=== PATIENT | female | born 1990 | race Caucasian/White ===

== ENCOUNTER 2017-10-14 12:29 | Emergency (ER) | payer MEDICAID ==
[~2017-10-14] VITALS: Ht 167.6 cm; Wt 56.7 kg
[2017-10-14 13:53] LABS: HEMATOCRIT 37.5 % (34.6-47.8); HEMOGLOBIN 12.9 g/dL (11.7-16.4); WHITE BLOOD COUNT 6.6 x10^3/uL (3.4-10)
[2017-10-14] MEDS ORDERED: SODIUM CHLORIDE FLUSH 10ML SYR IVF ONE (14:00)
[2017-10-14] MEDS ORDERED: SODIUM CHLORIDE 0.9% 1,000ML IVBOLUS ONE (14:00)
[2017-10-14] MEDS ORDERED: PLEASE ENTER ALLERGIES MC SCH ×2 (14:00)
[2017-10-14] MEDS ORDERED: ONDANSETRON 2MG/ML, 2ML IVPush ONE (14:00)
[2017-10-14] MEDS ORDERED: MORPHINE SULFATE 4 MG/ML, 1ML IVPush PRN (14:00)
[2017-10-14 14:02] LABS: BLOOD UREA NITROGEN 7 mg/dL (7-18)
[2017-10-14 16:13] VITALS: BP 109/68
== END 2017-10-14 16:16 | disposition home or self-care (01) ==
LOC: MERGE 12:29 → ED 15:36
DX: R10.2 Pelvic and perineal pain (principal)
CPT/HCPCS: 36415; 76801; 80048; 81003; 82040; 84702; 85025; 86901; 96361; 96374; 96375; 99285; J2405; J7030; 86900

== ENCOUNTER 2018-01-18 10:21 | Emergency (ER) | payer MEDICAID ==
[~2018-01-18] VITALS: Ht 167.6 cm; Wt 60.0 kg
[2018-01-18 11:46] LABS: BASOPHILS # (AUTO) 0.03 x10^3/uL (0-0.1); BASOPHILS % (AUTO) 0 % (0-1); EOSINOPHILS # (AUTO) 0.02 x10^3/uL (0-0.4); EOSINOPHILS % (AUTO) 0 % (1-7); LYMPHOCYTES % (AUTO) 19 % (22-44); MD NO; MEAN CORPUSCULAR HEMOGLOBIN 34.4 pg (27.0-34.8); MEAN CORPUSCULAR HGB CONC 34.9 g/dL (32.4-35.8); MEAN CORPUSCULAR VOLUME 98.3 fL (80-100); MEAN PLATELET VOLUME 8.5 fL (7.4-10.4); MONOCYTES # (AUTO) 0.39 x10^3/uL (0.2-0.8); MONOCYTES % (AUTO) 5 % (2-9); NEUTROPHILS # (AUTO) 5.64 x10^3/uL (1.8-6.8); NEUTROPHILS % (AUTO) 75 % (42-75); PLATELET COUNT 262 x10^3/uL (130-400); RED BLOOD COUNT 3.26 x10^6/uL (3.82-5.3)
[2018-01-18 11:58] LABS: ALANINE AMINOTRANSFERASE 7 U/L (12-78); ALBUMIN 3.1 g/dL (3.4-5.0); ANION GAP 9 mmol/L (5-15); CALCIUM 8.3 mg/dL (8.5-10.1); CHLORIDE 107 mmol/L (98-107); CREATININE 0.31 mg/dL (0.55-1.02)
[2018-01-18 12:00] LABS: ALKALINE PHOSPHATASE 44 U/L (45-117); BILIRUBIN,TOTAL 0.2 mg/dL (0.2-1.0); TOTAL PROTEIN 6.9 g/dL (6.4-8.2)
[2018-01-18 12:01] LABS: MICROSCOPIC NOT IND
[2018-01-18 12:09] LABS: CULTURE INDICATED? NO
[2018-01-18 12:58] VITALS: BP 107/67
== END 2018-01-18 12:59 | disposition home or self-care (01) ==
LOC: ED 12:45
DX: O26.892 Other specified pregnancy related conditions, second trimester (principal); R10.84 Generalized abdominal pain; Z3A.18 18 weeks gestation of pregnancy
CPT/HCPCS: 36415; 76815; 80053; 81003; 83690; 85025; 99285

== ENCOUNTER 2018-03-29 16:56 | Outpatient (CLI) | payer MEDICAID ==
[~2018-03-29] VITALS: Ht 167.6 cm; Wt 67.3 kg
[2018-03-29 17:08] VITALS: BP 115/75
[2018-03-29] MEDS ORDERED: PREN1TAB60 PO (17:30)
[2018-03-29] MEDS ORDERED: ACETAMINOPHEN 325 MG TABLET ONE (17:52)
[2018-03-29] MEDS ORDERED: ACETAMINOPHEN 325 MG TABLET PO PRN (18:00)
== END 2018-03-29 19:15 | disposition home or self-care (01) ==
LOC: LDOP 16:56
PROVIDERS: ATTEND Obstetrics & Gynecology
DX: O36.8130 Decreased fetal movements, third trimester, not applicable or unspecified (principal); Z3A.28 28 weeks gestation of pregnancy
CPT/HCPCS: 59025; 76815; 99201; G0463

== ENCOUNTER 2018-04-11 14:25 | Observation (INO) | payer MEDICAID ==
[~2018-04-11] VITALS: Ht 167.6 cm; Wt 65.0 kg
[~2018-04-11 14:25] MED LIST: PREN1TAB60 PO
[2018-04-11] MEDS ORDERED: PLEASE ENTER HEIGHT AND WEIGHT MC SCH (15:30)
[2018-04-11] MEDS ORDERED: LACTATED RINGERS 1,000 ML IVBOLUS ONE (15:30)
[2018-04-11] MEDS ORDERED: HYDROXYZINE PAMOATE 50MG CAP PO ONE (15:30)
[2018-04-11 16:13] LABS: MICROSCOPIC NOT IND
[2018-04-11 16:16] VITALS: BP 125/69
[2018-04-11 17:48] LABS: AMPHETAMINE SCREEN, URINE Negative (Negative); BARBITURATE SCREEN, URINE Negative (Negative); BENZODIAZEPINE SCREEN, URINE Negative (Negative); CANNABINOID SCREEN, URINE Negative (Negative); COCAINE SCREEN, URINE Negative (Negative); METHADONE SCREEN, URINE Negative (Negative); OPIATE SCREEN, URINE Negative (Negative)
[2018-04-11 18:28] LABS: BASOPHILS # (AUTO) 0.06 x10^3/uL (0-0.1); BASOPHILS % (AUTO) 1 % (0-1); EOSINOPHILS # (AUTO) 0.01 x10^3/uL (0-0.4); EOSINOPHILS % (AUTO) 0 % (1-7); LYMPHOCYTES # (AUTO) 1.77 x10^3/uL (1-3.4); LYMPHOCYTES % (AUTO) 21 % (22-44); MD NO; MEAN CORPUSCULAR HEMOGLOBIN 34.7 pg (27.0-34.8); MEAN CORPUSCULAR HGB CONC 34.8 g/dL (32.4-35.8); MEAN CORPUSCULAR VOLUME 99.8 fL (80-100); MEAN PLATELET VOLUME 8.3 fL (7.4-10.4); MONOCYTES # (AUTO) 0.45 x10^3/uL (0.2-0.8); MONOCYTES % (AUTO) 5 % (2-9); NEUTROPHILS # (AUTO) 6.32 x10^3/uL (1.8-6.8); NEUTROPHILS % (AUTO) 73 % (42-75); PLATELET COUNT 242 x10^3/uL (130-400); RED BLOOD COUNT 3.18 x10^6/uL (3.82-5.3); RED CELL DISTRIBUTION WIDTH 13.6 % (9.6-15.2)
[2018-04-11 18:40] LABS: ALANINE AMINOTRANSFERASE 12 U/L (12-78); ALBUMIN 2.8 g/dL (3.4-5.0); ANION GAP 9 mmol/L (5-15); CHLORIDE 110 mmol/L (98-107); CREATININE 0.32 mg/dL (0.55-1.02)
[2018-04-11 18:41] LABS: SALICYLATE LEVEL < 1.7 mg/dL (2.8-20.0)
[2018-04-11 18:42] LABS: ALKALINE PHOSPHATASE 61 U/L (45-117); BILIRUBIN,TOTAL 0.4 mg/dL (0.2-1.0); TOTAL PROTEIN 6.5 g/dL (6.4-8.2)
[2018-04-11 18:49] LABS: ACETAMINOPHEN < 2 mcg/mL (10-30)
[2018-04-11] MEDS ORDERED: FLUO10CA13 PO (21:57)
== END 2018-04-11 19:00 | disposition swing bed (61) ==
LOC: LDOP 14:25 → LDIP 16:23
PROVIDERS: ADMIT Student in an Organized Health Care Education/Training Program; ATTEND Obstetrics & Gynecology
DX: O47.03 False labor before 37 completed weeks of gestation, third trimester (principal); O99.343 Other mental disorders complicating pregnancy, third trimester; Z91.5 Personal history of self-harm; Z3A.30 30 weeks gestation of pregnancy
CPT/HCPCS: 36415; 59025; 76815; 80053; 80307; 80329; 81003; 85025; 87086; G0378; J7120; G0480

== ENCOUNTER 2018-04-11 19:06 | Observation (INO) | payer MEDICAID ==
[~2018-04-11] VITALS: Ht 167.6 cm; Wt 65.0 kg
[2018-04-11] MEDS ORDERED: FLUO10CA13 PO (21:57)
[2018-04-11] MEDS ORDERED: ONDANSETRON ODT 4 MG PO PRN (22:30)
[2018-04-11] MEDS ORDERED: ACETAMINOPHEN 325 MG TABLET PO PRN (22:30)
[2018-04-11 23:48] VITALS: BP 119/77
[2018-04-12 08:05] VITALS: BP 113/75
[2018-04-12 08:26] LABS: BASOPHILS # (AUTO) 0.03 x10^3/uL (0-0.1); BASOPHILS % (AUTO) 0 % (0-1); EOSINOPHILS # (AUTO) 0.04 x10^3/uL (0-0.4); EOSINOPHILS % (AUTO) 1 % (1-7); LYMPHOCYTES # (AUTO) 1.73 x10^3/uL (1-3.4); LYMPHOCYTES % (AUTO) 25 % (22-44); MD NO; MEAN CORPUSCULAR HEMOGLOBIN 34.6 pg (27.0-34.8); MEAN CORPUSCULAR HGB CONC 34.8 g/dL (32.4-35.8); MEAN CORPUSCULAR VOLUME 99.4 fL (80-100); MEAN PLATELET VOLUME 8.2 fL (7.4-10.4); MONOCYTES # (AUTO) 0.43 x10^3/uL (0.2-0.8); MONOCYTES % (AUTO) 6 % (2-9); NEUTROPHILS # (AUTO) 4.78 x10^3/uL (1.8-6.8); NEUTROPHILS % (AUTO) 68 % (42-75); PLATELET COUNT 231 x10^3/uL (130-400); RED BLOOD COUNT 3.29 x10^6/uL (3.82-5.3); RED CELL DISTRIBUTION WIDTH 14.1 % (9.6-15.2)
[2018-04-12 08:38] LABS: ALANINE AMINOTRANSFERASE 11 U/L (12-78); ALBUMIN 2.7 g/dL (3.4-5.0); ANION GAP 11 mmol/L (5-15); CHLORIDE 108 mmol/L (98-107); CREATININE 0.55 mg/dL (0.55-1.02)
[2018-04-12 08:41] LABS: ALKALINE PHOSPHATASE 63 U/L (45-117); BILIRUBIN,TOTAL 0.4 mg/dL (0.2-1.0); TOTAL PROTEIN 6.8 g/dL (6.4-8.2)
[2018-04-12] MEDS ORDERED: PRENATAL VIT/IRON/FA 1 EACH TABLET PO SCH (09:00)
[2018-04-12 19:24] VITALS: BP 104/85
== END 2018-04-13 00:32 ==
LOC: ED 20:14 → EDIP 21:58 → 3E 23:41
PROVIDERS: ADMIT Internal Medicine; ATTEND Internal Medicine
DX: O99.344 Other mental disorders complicating childbirth (principal); O99.02 Anemia complicating childbirth; O25.2 Malnutrition in childbirth; O26.893 Other specified pregnancy related conditions, third trimester; F32.9 Major depressive disorder, single episode, unspecified; R45.851 Suicidal ideations; Z37.1 Single stillbirth; Z81.8 Family history of other mental and behavioral disorders; Z82.0 Family history of epilepsy and other diseases of the nervous system; Z82.49 Family history of ischemic heart disease and other diseases of the circulatory system; Z83.3 Family history of diabetes mellitus; Z3A.30 30 weeks gestation of pregnancy
CPT/HCPCS: 36415; 80053; 83735; 84100; 85025; 99285; G0378

== ENCOUNTER 2018-04-15 20:39 | Outpatient (CLI) | payer MEDICAID ==
[~2018-04-15] VITALS: Ht 167.6 cm; Wt 66.0 kg
[~2018-04-15 20:39] MED LIST changes: +FLUO10CA13 PO
[2018-04-15 21:32] LABS: BASOPHILS # (AUTO) 0.07 x10^3/uL (0-0.1); BASOPHILS % (AUTO) 1 % (0-1); EOSINOPHILS # (AUTO) 0.01 x10^3/uL (0-0.4); EOSINOPHILS % (AUTO) 0 % (1-7); LYMPHOCYTES # (AUTO) 1.93 x10^3/uL (1-3.4); LYMPHOCYTES % (AUTO) 25 % (22-44); MD NO; MEAN CORPUSCULAR HGB CONC 35.1 g/dL (32.4-35.8); MEAN PLATELET VOLUME 8.3 fL (7.4-10.4); MONOCYTES # (AUTO) 0.51 x10^3/uL (0.2-0.8); MONOCYTES % (AUTO) 7 % (2-9); NEUTROPHILS # (AUTO) 5.36 x10^3/uL (1.8-6.8); NEUTROPHILS % (AUTO) 68 % (42-75); PLATELET COUNT 259 x10^3/uL (130-400); RED BLOOD COUNT 3.21 x10^6/uL (3.82-5.3); RED CELL DISTRIBUTION WIDTH 13.6 % (9.6-15.2)
[2018-04-15 21:40] LABS: ANION GAP 10 mmol/L (5-15); CALCIUM 8.4 mg/dL (8.5-10.1); CHLORIDE 111 mmol/L (98-107); CREATININE 0.42 mg/dL (0.55-1.02)
[2018-04-15 21:41] LABS: ALANINE AMINOTRANSFERASE 9 U/L (12-78); ALBUMIN 2.8 g/dL (3.4-5.0)
[2018-04-15] MEDS ORDERED: ACETAMINOPHEN 500 MG TABLET ONE (21:42)
[2018-04-15 21:43] LABS: ALKALINE PHOSPHATASE 65 U/L (45-117); BILIRUBIN,TOTAL 0.2 mg/dL (0.2-1.0); TOTAL PROTEIN 6.9 g/dL (6.4-8.2)
== END 2018-04-15 23:02 | disposition home or self-care (01) ==
LOC: LDOP 20:39
PROVIDERS: ATTEND Obstetrics & Gynecology
DX: O26.893 Other specified pregnancy related conditions, third trimester (principal); R10.9 Unspecified abdominal pain; Z3A.31 31 weeks gestation of pregnancy
CPT/HCPCS: 36415; 59025; 80053; 84550; 85025; 99211; G0463

== ENCOUNTER → 2018-05-22 | Outpatient (CLI) | payer MEDICAID ==
[~2018-05-22] VITALS: Ht 167.6 cm; Wt 67.7 kg
[2018-05-22 16:45] VITALS: BP 136/78
== END | disposition home or self-care (01) ==
LOC: LDOP 16:18
PROVIDERS: ATTEND Obstetrics & Gynecology
DX: O26.893 Other specified pregnancy related conditions, third trimester (principal); R10.9 Unspecified abdominal pain; Z3A.36 36 weeks gestation of pregnancy
CPT/HCPCS: 59025; 99211; G0463

== ENCOUNTER 2018-05-31 14:42 | Outpatient (CLI) | payer MEDICAID ==
[~2018-05-31] VITALS: Ht 167.6 cm; Wt 66.8 kg
[2018-05-31 15:22] LABS: MICROSCOPIC NOT IND
== END 2018-05-31 16:20 | disposition home or self-care (01) ==
LOC: LDOP 14:42
PROVIDERS: ATTEND Obstetrics & Gynecology
DX: O26.893 Other specified pregnancy related conditions, third trimester (principal); R10.9 Unspecified abdominal pain; Z3A.38 38 weeks gestation of pregnancy
CPT/HCPCS: 59025; 81003; 99211; G0463

== ENCOUNTER 2018-06-03 03:57 | Inpatient (IN) | payer MEDICAID ==
[~2018-06-03] VITALS: Ht 167.6 cm; Wt 67.1 kg
[2018-06-03] MEDS ORDERED: OXYTOCIN 30U/ 0.9% NaCL 500ML 500 ML IV ONE (03:59)
[2018-06-03] MEDS ORDERED: MISOPROSTOL 25 MCG TABLET VG PRN (04:00)
[2018-06-03] MEDS ORDERED: FENTANYL PF 100 MCG/2ML IV PRN (04:00)
[2018-06-03] MEDS ORDERED: FENTANYL PF 100 MCG/2ML IVPush PRN (04:00)
[2018-06-03] MEDS ORDERED: ONDANSETRON 2MG/ML, 2ML IVPush PRN (04:00)
[2018-06-03] MEDS: D5%-LACTATED RINGERS 1,000 ML IV SCH ×3 (04:05→20:05)
[2018-06-03] MEDS: LACTATED RINGERS 1,000 ML IV SCH ×3 (04:07→20:05)
[2018-06-03] MEDS ORDERED: OXYTOCIN 30U/ 0.9% NaCL 500ML 500 ML IV PRN (04:32)
[2018-06-03 05:13] LABS: BASOPHILS # (AUTO) 0.03 x10^3/uL (0-0.1); BASOPHILS % (AUTO) 0 % (0-1); EOSINOPHILS # (AUTO) 0.02 x10^3/uL (0-0.4); EOSINOPHILS % (AUTO) 0 % (1-7); LYMPHOCYTES # (AUTO) 1.95 x10^3/uL (1-3.4); LYMPHOCYTES % (AUTO) 25 % (22-44); MD NO; MEAN CORPUSCULAR HEMOGLOBIN 35.7 pg (27.0-34.8); MEAN CORPUSCULAR HGB CONC 35.2 g/dL (32.4-35.8); MEAN CORPUSCULAR VOLUME 101.3 fL (80-100); MEAN PLATELET VOLUME 9.5 fL (7.4-10.4); MONOCYTES # (AUTO) 0.62 x10^3/uL (0.2-0.8); MONOCYTES % (AUTO) 8 % (2-9); NEUTROPHILS # (AUTO) 5.29 x10^3/uL (1.8-6.8); NEUTROPHILS % (AUTO) 67 % (42-75); PLATELET COUNT 220 x10^3/uL (130-400); RED BLOOD COUNT 3.32 x10^6/uL (3.82-5.3); RED CELL DISTRIBUTION WIDTH 13.9 % (9.6-15.2)
[2018-06-03] MEDS ORDERED: ONDANSETRON 2MG/ML, 2ML ONE (07:13)
[2018-06-03] MEDS ORDERED: FENTANYL/BUPIV./NS/PF 250 ML EPIDCONT SCH ×2 (08:39→10:59)
[2018-06-03] MEDS ORDERED: FENTANYL PF 500 MCG, BUPIVACAINE/PF 0.5%, 30ML 62.5 ML in SODIUM CHLORIDE 0.9% 177.5 ML EPIDCONT SCH (10:00)
[2018-06-03 10:56] LABS: AMPHETAMINE SCREEN, URINE Negative (Negative); BARBITURATE SCREEN, URINE Negative (Negative); BENZODIAZEPINE SCREEN, URINE Negative (Negative); CANNABINOID SCREEN, URINE Negative (Negative); COCAINE SCREEN, URINE Negative (Negative); METHADONE SCREEN, URINE Negative (Negative); OPIATE SCREEN, URINE Negative (Negative)
[2018-06-03] MEDS ORDERED: LACTATED RINGERS 1,000 ML IV SCH (10:59)
[2018-06-03] MEDS ORDERED: NALOXONE 0.4 MG/ML, 1ML IVPush PRN (11:00)
[2018-06-03] MEDS ORDERED: LACTATED RINGERS 1,000 ML IVBOLUS PRN (11:00)
[2018-06-03] MEDS ORDERED: EPHEDRINE 50 MG/ML, 1ML IVPush PRN (11:00)
[2018-06-03] MEDS ORDERED: MISOPROSTOL 200 MCG TABLET ONE (13:23)
[2018-06-03] MEDS ORDERED: LIDOCAINE/PF 1%, 30ML ONE (13:23)
[2018-06-03] MEDS: OXYTOCIN 30U/ 0.9% NaCL 500ML 500 ML IV SCH (14:14)
[2018-06-03] MEDS ORDERED: IBUPROFEN 600 MG TABLET PO PRN (14:30)
[2018-06-03] MEDS ORDERED: DOCUSATE 100 MG CAPSULE PO PRN (14:30)
[2018-06-03] MEDS ORDERED: ONDANSETRON 2MG/ML, 2ML IV PRN (14:30)
[2018-06-03] MEDS ORDERED: MISOPROSTOL 200 MCG TABLET PR PRN (14:30)
[2018-06-03] MEDS ORDERED: ACETAMINOPHEN 325 MG TABLET PO PRN (14:30)
[2018-06-03] MEDS ORDERED: OXYcodone/APAP 5/325MG TABLET PO PRN (14:30)
[2018-06-03] MEDS: FLUOXETINE HCL 20 MG CAPSULE PO SCH (14:53)
[2018-06-03 16:52] VITALS: BP 119/74
[2018-06-03 20:00] VITALS: BP 111/75
[2018-06-03] MEDS: OXYcodone IR 5MG TABLET PO PRN (21:08)
[2018-06-03 22:30] LABS: BASOPHILS # (AUTO) 0.07 x10^3/uL (0-0.1); BASOPHILS % (AUTO) 1 % (0-1); EOSINOPHILS # (AUTO) 0.04 x10^3/uL (0-0.4); EOSINOPHILS % (AUTO) 0 % (1-7); LYMPHOCYTES # (AUTO) 1.66 x10^3/uL (1-3.4); LYMPHOCYTES % (AUTO) 15 % (22-44); MD NO; MEAN CORPUSCULAR HEMOGLOBIN 35.9 pg (27.0-34.8); MEAN CORPUSCULAR HGB CONC 35.6 g/dL (32.4-35.8); MEAN PLATELET VOLUME 9.3 fL (7.4-10.4); MONOCYTES # (AUTO) 0.77 x10^3/uL (0.2-0.8); MONOCYTES % (AUTO) 7 % (2-9); NEUTROPHILS % (AUTO) 78 % (42-75); PLATELET COUNT 199 x10^3/uL (130-400); RED BLOOD COUNT 3.16 x10^6/uL (3.82-5.3); RED CELL DISTRIBUTION WIDTH 13.5 % (9.6-15.2)
[2018-06-04] VITALS (14 sets, daily range): BP systolic 105–137; BP diastolic 69–93
[2018-06-04] MEDS: OXYTOCIN 30U/ 0.9% NaCL 500ML 500 ML IV SCH ×2 (00:31→09:56)
[2018-06-04] MEDS: LACTATED RINGERS 1,000 ML IV SCH ×2 (04:05→12:05)
[2018-06-04] MEDS: D5%-LACTATED RINGERS 1,000 ML IV SCH ×2 (04:05→12:05)
[2018-06-04 05:48] LABS: BASOPHILS # (AUTO) 0.03 x10^3/uL (0-0.1); BASOPHILS % (AUTO) 0 % (0-1); EOSINOPHILS # (AUTO) 0.07 x10^3/uL (0-0.4); EOSINOPHILS % (AUTO) 1 % (1-7); LYMPHOCYTES # (AUTO) 1.76 x10^3/uL (1-3.4); LYMPHOCYTES % (AUTO) 18 % (22-44); MD NO; MEAN CORPUSCULAR HGB CONC 34.5 g/dL (32.4-35.8); MEAN CORPUSCULAR VOLUME 101.4 fL (80-100); MEAN PLATELET VOLUME 9.1 fL (7.4-10.4); MONOCYTES # (AUTO) 0.82 x10^3/uL (0.2-0.8); MONOCYTES % (AUTO) 8 % (2-9); NEUTROPHILS # (AUTO) 7.29 x10^3/uL (1.8-6.8); NEUTROPHILS % (AUTO) 73 % (42-75); PLATELET COUNT 173 x10^3/uL (130-400); RED BLOOD COUNT 2.78 x10^6/uL (3.82-5.3); RED CELL DISTRIBUTION WIDTH 13.8 % (9.6-15.2)
[2018-06-04] MEDS: PRENATAL VIT/IRON/FA 1 EACH TABLET PO SCH (09:00)
[2018-06-04 09:45] LABS: BASOPHILS # (AUTO) 0.11 x10^3/uL (0-0.1); BASOPHILS % (AUTO) 1 % (0-1); EOSINOPHILS # (AUTO) 0.04 x10^3/uL (0-0.4); EOSINOPHILS % (AUTO) 1 % (1-7); LYMPHOCYTES # (AUTO) 1.17 x10^3/uL (1-3.4); LYMPHOCYTES % (AUTO) 12 % (22-44); MD NO; MEAN CORPUSCULAR HEMOGLOBIN 34.6 pg (27.0-34.8); MEAN CORPUSCULAR HGB CONC 34.2 g/dL (32.4-35.8); MEAN CORPUSCULAR VOLUME 101.1 fL (80-100); MEAN PLATELET VOLUME 8.8 fL (7.4-10.4); MONOCYTES # (AUTO) 0.57 x10^3/uL (0.2-0.8); MONOCYTES % (AUTO) 6 % (2-9); NEUTROPHILS # (AUTO) 7.59 x10^3/uL (1.8-6.8); NEUTROPHILS % (AUTO) 80 % (42-75); PLATELET COUNT 174 x10^3/uL (130-400); RED BLOOD COUNT 2.67 x10^6/uL (3.82-5.3); RED CELL DISTRIBUTION WIDTH 13.6 % (9.6-15.2)
[2018-06-04 10:01] LABS: INTERNATIONAL NORMALIZED RATIO 0.96 (0.93-1.1)
[2018-06-04] MEDS: FLUOXETINE HCL 20 MG CAPSULE PO SCH (10:10)
[2018-06-04] MEDS: OXYcodone IR 5MG TABLET PO PRN (10:27)
[2018-06-04] MEDS ORDERED: CEFAZOLIN 1,000 MG ONE (11:23)
[2018-06-04] MEDS ORDERED: WATER-INJECTION,STERILE 10 ML IV ONE (11:23)
[2018-06-04] MEDS ORDERED: SUCCINYLCHOLINE 20 MG/ML, 10ML ONE (11:23)
[2018-06-04] MEDS ORDERED: PROPOFOL 10 MG/ML, 20ML ONE (11:23)
[2018-06-04] MEDS ORDERED: LIDOCAINE-MPF 2% ,5ML ONE (11:23)
[2018-06-04] MEDS ORDERED: ROCURONIUM 10MG/ML,5ML ONE (11:23)
[2018-06-04] MEDS ORDERED: ACETAMINOPHEN 325 MG TABLET PO PRN (11:30)
[2018-06-04] MEDS ORDERED: FENTANYL PF 100 MCG/2ML IV PRN (11:30)
[2018-06-04] MEDS ORDERED: HYDROmorphone 1 MG/ML, 1ML IV PRN (11:30)
[2018-06-04] MEDS ORDERED: hydrALAzine 20 MG/ML, 1ML IV PRN (11:30)
[2018-06-04] MEDS ORDERED: METOPROLOL 1 MG/ML, 5ML IV PRN (11:30)
[2018-06-04] MEDS ORDERED: ALBUTEROL SULFATE 2.5 MG/3 ML NPPB PRN (11:30)
[2018-06-04] MEDS ORDERED: MEPERIDINE/PF 25MG/0.5ML IVPush PRN (11:30)
[2018-06-04] MEDS ORDERED: ONDANSETRON 2MG/ML, 2ML IV PRN (11:30)
[2018-06-04] MEDS ORDERED: PROMETHAZINE 25 MG/ML, 1ML IV PRN (11:30)
[2018-06-04] MEDS ORDERED: OXYcodone 5 MG/5 ML ORAL.SOL UDC PO PRN (11:30)
[2018-06-04] MEDS ORDERED: EPHEDRINE 50 MG/ML, 1ML IVPush PRN (11:30)
[2018-06-04] MEDS ORDERED: DEXAMETHASONE 4 MG/ML, 1ML ONE (11:33)
[2018-06-04] MEDS ORDERED: morphine SULFATE 10 MG/ML, 1ML IVPush PRN (12:00)
[2018-06-04] MEDS ORDERED: OXYcodone/APAP 5/325MG TABLET PO PRN (12:00)
[2018-06-04] MEDS ORDERED: OXYTOCIN 10 UNITS/ML, 1ML ONE (12:05)
[2018-06-04] MEDS ORDERED: ACETAMINOPHEN 650 MG/20.3 ML UDC ONE (12:22)
[2018-06-04] MEDS: IBUPROFEN 600 MG TABLET PO SCH ×2 (16:23→22:24)
[2018-06-04 17:13] LABS: BASOPHILS # (AUTO) 0.08 x10^3/uL (0-0.1); BASOPHILS % (AUTO) 1 % (0-1); EOSINOPHILS % (AUTO) 0 % (1-7); LYMPHOCYTES # (AUTO) 0.89 x10^3/uL (1-3.4); LYMPHOCYTES % (AUTO) 5 % (22-44); MEAN CORPUSCULAR HEMOGLOBIN 34.4 pg (27.0-34.8); MEAN CORPUSCULAR HGB CONC 35.1 g/dL (32.4-35.8); MEAN PLATELET VOLUME 8.9 fL (7.4-10.4); MONOCYTES # (AUTO) 0.39 x10^3/uL (0.2-0.8); MONOCYTES % (AUTO) 2 % (2-9); NEUTROPHILS # (AUTO) 15.03 x10^3/uL (1.8-6.8); NEUTROPHILS % (AUTO) 92 % (42-75); PLATELET COUNT 216 x10^3/uL (130-400); RED BLOOD COUNT 3.38 x10^6/uL (3.82-5.3); RED CELL DISTRIBUTION WIDTH 15.6 % (9.6-15.2)
[2018-06-04 17:14] LABS: MD NO
[2018-06-05] VITALS: BP 111/86
[2018-06-05 04:00] VITALS: BP 118/83
[2018-06-05 05:25] LABS: BASOPHILS # (AUTO) 0.04 x10^3/uL (0-0.1); BASOPHILS % (AUTO) 0 % (0-1); EOSINOPHILS # (AUTO) 0.04 x10^3/uL (0-0.4); EOSINOPHILS % (AUTO) 0 % (1-7); LYMPHOCYTES # (AUTO) 2.18 x10^3/uL (1-3.4); LYMPHOCYTES % (AUTO) 15 % (22-44); MD NO; MEAN CORPUSCULAR HEMOGLOBIN 34.9 pg (27.0-34.8); MEAN CORPUSCULAR HGB CONC 35.4 g/dL (32.4-35.8); MEAN CORPUSCULAR VOLUME 98.5 fL (80-100); MEAN PLATELET VOLUME 8.9 fL (7.4-10.4); MONOCYTES # (AUTO) 0.59 x10^3/uL (0.2-0.8); MONOCYTES % (AUTO) 4 % (2-9); NEUTROPHILS # (AUTO) 11.64 x10^3/uL (1.8-6.8); NEUTROPHILS % (AUTO) 80 % (42-75); PLATELET COUNT 204 x10^3/uL (130-400); RED BLOOD COUNT 3.08 x10^6/uL (3.82-5.3); RED CELL DISTRIBUTION WIDTH 16.2 % (9.6-15.2)
[2018-06-05] MEDS: IBUPROFEN 600 MG TABLET PO SCH (06:32)
[2018-06-05 07:47] VITALS: BP 114/76
[2018-06-05] MEDS ORDERED: IBUP-1222 PO (09:57)
[2018-06-05] MEDS: PRENATAL VIT/IRON/FA 1 EACH TABLET PO SCH (11:12)
== END 2018-06-05 15:20 | disposition home or self-care (01) | DRG 767 ==
LOC: LDIP 03:57 → 2NW 16:33
PROVIDERS: ADMIT Obstetrics & Gynecology; ATTEND Obstetrics & Gynecology
PROC: 10E0XZZ Delivery of Products of Conception, External Approach (ICD-10-PCS; principal; 2018-06-03)
PROC: 0W8NXZZ Division of Female Perineum, External Approach (ICD-10-PCS; 2018-06-03)
PROC: 3E0R3BZ Introduction of Anesthetic Agent into Spinal Canal, Percutaneous Approach (ICD-10-PCS; 2018-06-03)
PROC: 00HU33Z Insertion of Infusion Device into Spinal Canal, Percutaneous Approach (ICD-10-PCS; 2018-06-03)
PROC: 10D17Z9 Manual Extraction of Products of Conception, Retained, Via Natural or Artificial Opening (ICD-10-PCS; 2018-06-04)
PROC: 30233N1 Transfusion of Nonautologous Red Blood Cells into Peripheral Vein, Percutaneous Approach (ICD-10-PCS; 2018-06-04)
DX: O41.03X0 Oligohydramnios, third trimester, not applicable or unspecified (principal); O72.1 Other immediate postpartum hemorrhage; O69.1XX0 Labor and delivery complicated by cord around neck, with compression, not applicable or unspecified; Z3A.38 38 weeks gestation of pregnancy; Z37.0 Single live birth; O90.81 Anemia of the puerperium; D64.9 Anemia, unspecified
CPT/HCPCS: 36415; 80307; 85025; 85610; 85730; 86850; 86900; 86923; 88305; J0690; J1100; J2405; J2704; J3490; J0330; J2590; J7120; P9016

== ENCOUNTER 2020-07-02 13:11 | Inpatient (IN) | payer MEDICAID ==
[~2020-07-02] VITALS: Ht 167.6 cm; Wt 75.4 kg
[~2020-07-02 13:11] MED LIST changes: +IBUP-1222 PO
[2020-07-02] MEDS: LACTATED RINGERS 1,000 ML IV SCH ×2 (13:28→17:48)
[2020-07-02] MEDS ORDERED: OXYTOCIN 30U/ 0.9% NaCL 500ML 500 ML IV PRN (13:52)
[2020-07-02] MEDS ORDERED: OXYTOCIN 30U/ 0.9% NaCL 500ML 500 ML IV ONE (13:52)
[2020-07-02] MEDS ORDERED: OXYTOCIN 30U/ 0.9% NaCL 500ML 500 ML ONE (13:54)
[2020-07-02] MEDS ORDERED: FENTANYL PF 100 MCG/2ML IV PRN (14:00)
[2020-07-02] MEDS ORDERED: TERBUTALINE 1 MG/ML, 1ML IVPush PRN (14:00)
[2020-07-02] MEDS ORDERED: FENTANYL PF 100 MCG/2ML IVPush PRN (14:00)
[2020-07-02] MEDS ORDERED: TERBUTALINE 1 MG/ML, 1ML SQ PRN (14:00)
[2020-07-02] MEDS ORDERED: ONDANSETRON 2MG/ML, 2ML IVPush PRN ×2 (14:00→19:00)
[2020-07-02 14:28] LABS: BASOPHILS # (AUTO) 0.02 x10^3/uL (0-0.1); BASOPHILS % (AUTO) 0 % (0-1); EOSINOPHILS # (AUTO) 0.01 x10^3/uL (0-0.4); EOSINOPHILS % (AUTO) 0 % (1-7); LYMPHOCYTES # (AUTO) 1.18 x10^3/uL (1-3.4); LYMPHOCYTES % (AUTO) 16 % (22-44); MD NO; MEAN CORPUSCULAR HEMOGLOBIN 34.7 pg (27.0-34.8); MEAN CORPUSCULAR HGB CONC 34.4 g/dL (32.4-35.8); MEAN CORPUSCULAR VOLUME 100.7 fL (80-100); MEAN PLATELET VOLUME 7.8 fL (7.4-10.4); MONOCYTES # (AUTO) 0.44 x10^3/uL (0.2-0.8); MONOCYTES % (AUTO) 6 % (2-9); NEUTROPHILS # (AUTO) 5.65 x10^3/uL (1.8-6.8); NEUTROPHILS % (AUTO) 77 % (42-75); PLATELET COUNT 233 x10^3/uL (130-400); RED BLOOD COUNT 3.42 x10^6/uL (3.82-5.3); RED CELL DISTRIBUTION WIDTH 12.9 % (9.6-15.2)
[2020-07-02] MEDS ORDERED: PLEASE ENTER HEIGHT AND WEIGHT MC SCH (14:30)
[2020-07-02 14:36] LABS: AMPHETAMINE SCREEN, URINE Negative (Negative); BARBITURATE SCREEN, URINE Negative (Negative); BENZODIAZEPINE SCREEN, URINE Negative (Negative); CANNABINOID SCREEN, URINE Negative (Negative); COCAINE SCREEN, URINE Negative (Negative); METHADONE SCREEN, URINE Negative (Negative); OPIATE SCREEN, URINE Negative (Negative)
[2020-07-02] MEDS ORDERED: NEWBORN KIT ONE (15:16)
[2020-07-02] MEDS ORDERED: D5%-LACTATED RINGERS 1,000 ML IV SCH (17:55)
[2020-07-02] MEDS ORDERED: BUPIVACAINE 0.25% ONE (18:14)
[2020-07-02] MEDS ORDERED: FENTANYL/BUPIV./NS/PF 250 ML EPIDCONT ONE (18:15)
[2020-07-02] MEDS ORDERED: FENTANYL/BUPIV./NS/PF 250 ML EPIDCONT SCH (18:38)
[2020-07-02] MEDS ORDERED: LACTATED RINGERS 1,000 ML IV SCH (18:38)
[2020-07-02] MEDS ORDERED: NALOXONE 0.4 MG/ML, 1ML IVPush PRN (19:00)
[2020-07-02] MEDS ORDERED: DIPHENHYDRAMINE 50 MG/ML, 1ML IVPush PRN (19:00)
[2020-07-02] MEDS ORDERED: EPHEDRINE 50 MG/ML, 1ML IVPush PRN (19:00)
[2020-07-02] MEDS ORDERED: LACTATED RINGERS 1,000 ML IVBOLUS PRN (19:00)
[2020-07-02] MEDS ORDERED: ONDANSETRON 2MG/ML, 2ML ONE (19:56)
[2020-07-02] MEDS ORDERED: LACTATED RINGERS 1,000 ML INTUTE SCH (20:00)
[2020-07-02] MEDS ORDERED: LACTATED RINGERS 1,000 ML INTUTE PRN (20:00)
[2020-07-02] MEDS ORDERED: MISOPROSTOL 200 MCG TABLET ONE (20:52)
[2020-07-02] MEDS ORDERED: METOCLOPRAMIDE 5 MG/ML, 2ML ONE (21:42)
[2020-07-02] MEDS ORDERED: METOCLOPRAMIDE 5 MG/ML, 2ML IVPush PRN (22:00)
[2020-07-02] MEDS ORDERED: OXYcodone/APAP 5/325MG TABLET PO PRN (22:30)
[2020-07-02] MEDS ORDERED: OXYcodone IR 5MG TABLET PO PRN (22:30)
[2020-07-02] MEDS ORDERED: ONDANSETRON 2MG/ML, 2ML IV PRN (22:30)
[2020-07-02] MEDS ORDERED: MISOPROSTOL 200 MCG TABLET PR PRN (22:30)
[2020-07-02] MEDS ORDERED: SIMETHICONE 80 MG CHEW TAB PO PRN (22:30)
[2020-07-02] MEDS ORDERED: ACETAMINOPHEN 325 MG TABLET PO PRN (22:30)
[2020-07-02] MEDS ORDERED: IBUPROFEN 600 MG TABLET ONE (23:52)
[2020-07-03] MEDS: IBUPROFEN 600 MG TABLET PO PRN ×3 (00:11→19:21)
[2020-07-03] MEDS ORDERED: OXYTOCIN 30U/ 0.9% NaCL 500ML 500 ML ONE (00:25)
[2020-07-03] MEDS: OXYTOCIN 30U/ 0.9% NaCL 500ML 500 ML IV SCH ×3 (00:26→18:19)
[2020-07-03 01:00] VITALS: BP 104/68
[2020-07-03 04:00] VITALS: BP 110/69
[2020-07-03 07:54] VITALS: BP 121/86
[2020-07-03 08:03] LABS: BASOPHILS # (AUTO) 0.03 x10^3/uL (0-0.1); BASOPHILS % (AUTO) 0 % (0-1); EOSINOPHILS # (AUTO) 0.04 x10^3/uL (0-0.4); EOSINOPHILS % (AUTO) 0 % (1-7); LYMPHOCYTES # (AUTO) 1.17 x10^3/uL (1-3.4); LYMPHOCYTES % (AUTO) 10 % (22-44); MD NO; MEAN CORPUSCULAR HGB CONC 33.6 g/dL (32.4-35.8); MEAN CORPUSCULAR VOLUME 101.3 fL (80-100); MEAN PLATELET VOLUME 7.9 fL (7.4-10.4); MONOCYTES # (AUTO) 0.83 x10^3/uL (0.2-0.8); MONOCYTES % (AUTO) 7 % (2-9); NEUTROPHILS # (AUTO) 9.36 x10^3/uL (1.8-6.8); NEUTROPHILS % (AUTO) 82 % (42-75); PLATELET COUNT 239 x10^3/uL (130-400); RED BLOOD COUNT 3.54 x10^6/uL (3.82-5.3); RED CELL DISTRIBUTION WIDTH 12.8 % (9.6-15.2)
[2020-07-03] MEDS: PRENATAL VIT/IRON/FA 1 EACH TABLET PO SCH (08:25)
[2020-07-03] MEDS: DOCUSATE 100 MG CAPSULE PO PRN ×2 (08:26→19:22)
[2020-07-03 12:10] VITALS: BP 110/72
[2020-07-03] MEDS ORDERED: RHOGAM FROM BLOOD BANK 1 NOTE EA IM/IV ONE (14:00)
[2020-07-03 16:00] VITALS: BP 116/78
[2020-07-03 19:11] VITALS: BP 104/71
[2020-07-04] MEDS: IBUPROFEN 600 MG TABLET PO PRN ×2 (01:36→07:25)
[2020-07-04] MEDS: OXYTOCIN 30U/ 0.9% NaCL 500ML 500 ML IV SCH (04:24)
[2020-07-04] MEDS: DOCUSATE 100 MG CAPSULE PO PRN (07:25)
[2020-07-04] MEDS: PRENATAL VIT/IRON/FA 1 EACH TABLET PO SCH (07:25)
[2020-07-04 07:40] VITALS: BP 109/72
[2020-07-04] MEDS ORDERED: IBUP-1222 PO (12:23)
== END 2020-07-04 13:00 | disposition home or self-care (01) | DRG 807 ==
LOC: LDIP 13:11 → 2NW 07-03 00:50
PROVIDERS: ADMIT Obstetrics & Gynecology; ATTEND Obstetrics & Gynecology
PROC: 10E0XZZ Delivery of Products of Conception, External Approach (ICD-10-PCS; principal; 2020-07-02)
PROC: 3E0R3BZ Introduction of Anesthetic Agent into Spinal Canal, Percutaneous Approach (ICD-10-PCS; 2020-07-02)
PROC: 00HU33Z Insertion of Infusion Device into Spinal Canal, Percutaneous Approach (ICD-10-PCS; 2020-07-02)
PROC: 0HQ9XZZ Repair Perineum Skin, External Approach (ICD-10-PCS; 2020-07-02)
PROC: 3E0234Z Introduction of Serum, Toxoid and Vaccine into Muscle, Percutaneous Approach (ICD-10-PCS; 2020-07-03)
DX: O41.03X0 Oligohydramnios, third trimester, not applicable or unspecified (principal); Z37.0 Single live birth; O70.0 First degree perineal laceration during delivery; Z3A.37 37 weeks gestation of pregnancy; Z03.818 Encounter for observation for suspected exposure to other biological agents ruled out
CPT/HCPCS: 36415; J7121; 80307; 85025; 85461; 86592; 86850; 86900; 87635; G0378; J2405; J2790; J2590; J3010; J7120

== ENCOUNTER 2021-07-21 09:35 | Inpatient (IN) | payer MEDICAID ==
[~2021-07-21] VITALS: Ht 170.2 cm; Wt 74.5 kg
[2021-07-21 09:51] VITALS: BP 117/85
[2021-07-21] MEDS ORDERED: OXYTOCIN 30U/ 0.9% NaCL 500ML 500 ML IV PRN (10:00)
[2021-07-21] MEDS ORDERED: TERBUTALINE 1 MG/ML, 1ML IVPush PRN (10:00)
[2021-07-21] MEDS ORDERED: CALCIUM CARBONATE 500 MG TAB.CHEW PO PRN (10:00)
[2021-07-21] MEDS ORDERED: D5%-LACTATED RINGERS 1,000 ML IV SCH (10:00)
[2021-07-21] MEDS ORDERED: OXYTOCIN 30U/ 0.9% NaCL 500ML 500 ML IV ONE (10:00)
[2021-07-21] MEDS ORDERED: ONDANSETRON 2MG/ML, 2ML IVPush PRN (10:00)
[2021-07-21] MEDS ORDERED: FENTANYL PF 100 MCG/2ML IV PRN (10:00)
[2021-07-21] MEDS ORDERED: FENTANYL PF 100 MCG/2ML IVPush PRN (10:00)
[2021-07-21] MEDS ORDERED: TERBUTALINE 1 MG/ML, 1ML SQ PRN (10:00)
[2021-07-21] MEDS ORDERED: LIDOCAINE 1%, 20ML ONE (10:25)
[2021-07-21] MEDS ORDERED: NEWBORN KIT ONE (10:25)
[2021-07-21] MEDS ORDERED: OXYTOCIN 30U/ 0.9% NaCL 500ML 500 ML ONE (10:26)
[2021-07-21] MEDS ORDERED: MISOPROSTOL 200 MCG TABLET ONE (10:26)
[2021-07-21 10:39] LABS: BASOPHILS % (AUTO) 0 % (0-1); EOSINOPHILS % (AUTO) 0 % (1-7); LYMPHOCYTES % (AUTO) 18 % (22-44); MEAN CORPUSCULAR HEMOGLOBIN 33.8 pg (27.0-34.8); MEAN CORPUSCULAR HGB CONC 35.6 g/dL (32.4-35.8); MEAN PLATELET VOLUME 7.9 fL (7.4-10.4); MONOCYTES % (AUTO) 7 % (2-9); NEUTROPHILS % (AUTO) 74 % (42-75); PLATELET COUNT 220 x10^3/uL (130-400); RED BLOOD COUNT 3.31 x10^6/uL (3.82-5.3); RED CELL DISTRIBUTION WIDTH 13.9 % (9.6-15.2)
[2021-07-21] MEDS: LACTATED RINGERS 1,000 ML IV SCH ×4 (10:40→21:30)
[2021-07-21] MEDS ORDERED: BUPIVACAINE 0.25% ONE (11:23)
[2021-07-21] MEDS ORDERED: FENTANYL/BUPIV./NS/PF 250 ML EPIDCONT ONE (11:23)
[2021-07-21] MEDS ORDERED: ACETAMINOPHEN 325 MG TABLET PO PRN (15:00)
[2021-07-21] MEDS ORDERED: OXYcodone IR 5MG TABLET PO PRN (15:00)
[2021-07-21] MEDS ORDERED: MISOPROSTOL 200 MCG TABLET PR PRN (15:00)
[2021-07-21] MEDS ORDERED: SIMETHICONE 80 MG CHEW TAB PO PRN (15:00)
[2021-07-21] MEDS ORDERED: DOCUSATE 100 MG CAPSULE PO PRN (15:00)
[2021-07-21] MEDS ORDERED: OXYcodone/APAP 5/325MG TABLET PO PRN (15:00)
[2021-07-21] MEDS ORDERED: ONDANSETRON 2MG/ML, 2ML IV PRN (15:00)
[2021-07-21] MEDS: OXYTOCIN 30U/ 0.9% NaCL 500ML 500 ML IV SCH ×2 (15:36→21:40)
[2021-07-21] MEDS: IBUPROFEN 600 MG TABLET PO PRN (16:59)
[2021-07-21 18:15] VITALS: BP 112/77
[2021-07-21 21:00] VITALS: BP 97/61
[2021-07-21 23:30] LABS: BASOPHILS % (AUTO) 1 % (0-1); EOSINOPHILS % (AUTO) 0 % (1-7); LYMPHOCYTES % (AUTO) 15 % (22-44); MEAN CORPUSCULAR HGB CONC 35.7 g/dL (32.4-35.8); MEAN PLATELET VOLUME 8.1 fL (7.4-10.4); MONOCYTES % (AUTO) 7 % (2-9); NEUTROPHILS % (AUTO) 77 % (42-75); PLATELET COUNT 215 x10^3/uL (130-400); RED BLOOD COUNT 3.39 x10^6/uL (3.82-5.3)
[2021-07-22 00:47] VITALS: BP 109/75
[2021-07-22 04:15] VITALS: BP 108/71
[2021-07-22] MEDS: LACTATED RINGERS 1,000 ML IV SCH (07:30)
[2021-07-22 07:45] VITALS: BP 114/80
[2021-07-22] MEDS: IBUPROFEN 600 MG TABLET PO PRN (08:01)
[2021-07-22] MEDS ORDERED: PRENATAL VIT/IRON/FA 1 EACH TABLET PO SCH (09:00)
[2021-07-22] MEDS: OXYTOCIN 30U/ 0.9% NaCL 500ML 500 ML IV SCH (11:00)
[2021-07-22 12:00] VITALS: BP 120/78
== END 2021-07-22 15:58 | disposition home or self-care (01) | DRG 807 ==
LOC: LDOP 09:35 → LDIP 09:47 → 2NW 17:30
PROVIDERS: ADMIT Obstetrics & Gynecology; ATTEND Obstetrics & Gynecology
PROC: 10E0XZZ Delivery of Products of Conception, External Approach (ICD-10-PCS; principal; 2021-07-21)
PROC: 3E0S3BZ Introduction of Anesthetic Agent into Epidural Space, Percutaneous Approach (ICD-10-PCS; 2021-07-21)
PROC: 00HU33Z Insertion of Infusion Device into Spinal Canal, Percutaneous Approach (ICD-10-PCS; 2021-07-21)
DX: O80 Encounter for full-term uncomplicated delivery (principal); Z37.0 Single live birth; Z3A.38 38 weeks gestation of pregnancy; Z20.822 Contact with and (suspected) exposure to COVID-19
CPT/HCPCS: 36415; 85025; 86592; 86850; 86900; 87635; G0378; J2405; J2590; J3010; J7120